=== PATIENT | male | born 1995 | race Caucasian/White ===

== ENCOUNTER 2018-10-03 15:01 | Emergency (ER) | payer OTHER ==
[~2018-10-03] VITALS: Ht 177.8 cm; Wt 104.5 kg
[2018-10-03 15:05] VITALS: TEMP 98.6
[2018-10-03] MEDS ORDERED: NORCO 325 MG-51 TAB PO (15:34)
[2018-10-03 16:26] VITALS: BP 127/76; PULSE 66
== END 2018-10-03 16:30 | disposition home or self-care (01) ==
LOC: COL.ER 15:01
DX: S90.122A Contusion of left lesser toe(s) without damage to nail, initial encounter (principal); W31.89XA Contact with other specified machinery, initial encounter; Y92.59 Other trade areas as the place of occurrence of the external cause

== ENCOUNTER 2021-08-14 14:10 | Emergency (ER) | payer BC ==
[~2021-08-14] VITALS: Ht 182.9 cm; Wt 118.2 kg
[~2021-08-14 14:10] MED LIST: NORCO 325 MG-51 TAB PO
[2021-08-14 14:45] VITALS: TEMP 98.3
[2021-08-14] MEDS ORDERED: ZOFRAN ODT4 MG PO (15:23)
[2021-08-14 16:40] VITALS: BP 120/81; PULSE 80
== END 2021-08-14 16:45 | disposition home or self-care (01) ==
LOC: COL.ER 14:10
DX: A08.4 Viral intestinal infection, unspecified (principal); Z20.822 Contact with and (suspected) exposure to COVID-19

== ENCOUNTER 2022-07-09 19:22 | Emergency (ER) | payer BC ==
[~2022-07-09] VITALS: Ht 177.8 cm; Wt 109.1 kg
[~2022-07-09 19:22] MED LIST changes: +ZOFRAN ODT4 MG PO
[2022-07-09 20:35] VITALS: BP 141/76; PULSE 98; TEMP 99
== END 2022-07-09 20:35 | disposition home or self-care (01) ==
LOC: COL.ER 19:22
DX: L25.9 Unspecified contact dermatitis, unspecified cause (principal)